=== PATIENT | female | born 1990 | race African-American/Black ===

== ENCOUNTER 2018-06-28 16:18 | Emergency (ER) | payer OTHER ==
[~2018-06-28] VITALS: Ht 157.5 cm; Wt 71.4 kg
[2018-06-28 16:22] VITALS: BP 128/84
== END 2018-06-28 17:17 | disposition home or self-care (01) ==
LOC: EMS 16:20
DX: R21 Rash and other nonspecific skin eruption (principal); R03.0 Elevated blood-pressure reading, without diagnosis of hypertension; F17.210 Nicotine dependence, cigarettes, uncomplicated
CPT/HCPCS: 99283